=== PATIENT | female | born 1980 | race Caucasian/White ===

== ENCOUNTER 2022-09-22 12:26 | Emergency (ER) | payer BC, SELFPAY ==
[2022-09-22] VITALS (11 sets, daily range): BP systolic 107–121; BP diastolic 52–72; PULSE 61–80; RESP 13–22; TEMP 37.2; O2SAT 98–100; BMI 20.1
--- NOTE | 2022-09-22 13:45 | CT_ITS ---
[address] [address] Patient Name: MIGUELITO ADLAL MRN: [id number] date: 1980 Sex: F Assigned Patient Location: ER Current Patient Location: ED.[facility] Accession/Order Number: [id number] Exam Date: 09/22/2022 15:15 Report Date: 09/22/2022 20:03 At the request of: ANKUR DE LA CRUZ Procedure: CT abdomen pelvis w con EXAMINATION: CT abdomen pelvis w con HISTORY: left upper and mid quadrant abdominal pain COMPARISON: No relevant comparison available. TECHNIQUE: Axial, Coronal, and Sagittal images were obtained without and/or with IV contrast as indicated by examination type. Dose reduction techniques were achieved by using automated exposure control and/or adjustment of mA and/or kV according to patient size and/or use of iterative reconstruction technique. FINDINGS: LUNG BASES: No visible pulmonary or pleural disease. LIVER: No enlargement, atrophy, suspicious density, or significant focal lesion. BILIARY: No dilatation or calcification. PANCREAS: No lesion, fluid collection, or abnormal duct dilatation. SPLEEN: No enlargement or focal lesion. ADRENALS: No mass or enlargement. KIDNEYS: No mass, obstruction, or calcification. BOWEL/MESENTERY: Numerous fluid-filled loops of small bowel within the lower abdomen and pelvis. No visible mass, obstruction, or bowel wall thickening. No free air or free fluid. AORTA/VASCULAR: No aneurysm or dissection. RETROPERITONEUM: No mass or adenopathy. LYMPH NODES: No adenopathy. URINARY BLADDER: No visible focal wall thickening, lesion, or calculus. PELVIC ORGANS: Hysterectomy. ABDOMINAL WALL: No mass or hernia. BONES: No bony lesion or fracture. OTHER: Negative. CT/CT abdomen pelvis w con IMPRESSION: 1. Numerous fluid-filled loops of small bowel without obstruction; enteritis versus mild ileus? 2.No additional suspicious findings to account for patient's symptoms. Preliminary findings were provided to the emergency department at time of imaging. Electronically authenticated by: OPAL HUMPHERY Date: 09/22/2022 20:03
--- NOTE | 2022-09-22 13:45 | XR_ITS ---
The [address] [address] Patient Name: MIGUELITO DALAL MRN: [id number] date: 1980 Sex: F Assigned Patient Location: ER Current Patient Location: ED.[facility] Accession/Order Number: [id number] Exam Date: 09/22/2022 15:15 Report Date: 09/22/2022 20:00 At the request of: ANKUR DE LA CRUZ Procedure: XR chest 1V EXAMINATION: XR chest 1V HISTORY: epigastric abdominal pain COMPARISON: No relevant comparison available. FINDINGS: LUNGS: No significant pulmonary parenchymal abnormalities. VASCULATURE: No increased pulmonary vasculature. PLEURA: No pneumothorax, effusion, or pleural thickening. CARDIAC: No cardiomegaly or cardiac silhouette abnormality. MEDIASTINUM: No visible mass or adenopathy. BONES: No fracture or visible bone lesion. OTHER: Negative. XR/XR chest 1V IMPRESSION: 1. No acute cardiopulmonary process. Preliminary findings were provided to the emergency department at time of imaging. Electronically authenticated by: OPAL HUMPHREY Date: 09/22/2022 20:00
--- NOTE | 2022-09-22 13:45 | CT_ITS ---
The [address] [address] Patient Name: MIGUELITO DALAL MRN: [id number] date: 1980 Sex: F Assigned Patient Location: ER Current Patient Location: ED.MAIN Accession/Order Number: [id number] Exam Date: 09/22/2022 15:15 Report Date: 09/22/2022 20:01 At the request of: ANKUR DE LA CRUZ Procedure: CT head/brain wo con EXAMINATION: CT head/brain wo con HISTORY: headache dizziness COMPARISON: No relevant comparison available. TECHNIQUE: Axial CT images were obtained without IV contrast. Dose reduction techniques were achieved by using automated exposure control and/or adjustment of mA and/or kV according to patient size and/or use of iterative reconstruction technique. FINDINGS: BRAIN: No edema, hemorrhage, mass, acute infarction, or inappropriate atrophy. CSF SPACES: No hydrocephalus, subarachnoid hemorrhage, or mass. Appropriate for age. SKULL: No fracture, mass, or other significant visible lesion. SINUSES: No significant mucosal thickening or fluid on the limited views. ORBITS: No appreciable abnormality on the limited views. OTHER: Negative CT/CT head/brain wo con IMPRESSION: 1. Normal CT appearance of the brain. Preliminary findings were provided to the emergency department at time of imaging. Electronically authenticated by: OPAL HUMPHREY Date: 09/22/2022 20:01
[2022-09-22 13:57] LABS: Basophils Percent Auto 0.2 % (0.2-2.0); Eosinophils Percent Auto 0.4 % (0.9-7.0); Hematocrit 41.4 % (36.0-48.0); Hemoglobin 14.4 g/dL (12.0-16.0); Immature Granulocytes Abs Auto 0.02 10^3/uL (0.00-0.03); Immature Granulocytes Pct Auto 0.2 % (0.0-0.5); Lymphocytes Absolute Auto 1.1 10^3/uL (1.2-3.8); Lymphocytes Percent Auto 13.6 % (20.5-60.0); Mean Corpuscular HGB Conc 34.8 g/dL (29.9-35.2); Mean Corpuscular Hemoglobin 30.9 pg (26.7-34.0); Mean Corpuscular Volume 88.8 fL (81.0-99.0); Mean Platelet Volume 9.5 fL (9.5-13.5); Monocytes Absolute Auto 1.1 10^3/uL (0.3-0.8); Monocytes Percent Auto 14.2 % (1.7-12.0); Neutrophils Absolute Auto 5.7 10^3/uL (1.4-6.5); Neutrophils Percent Auto 71.4 % (43.0-75.0); Platelet Count 224 10^3/uL (150-450); Red Blood Count 4.66 10^6/uL (4.20-5.40); Red Cell Distribution Width 12.2 % (11.0-15.0)
--- NOTE | 2022-09-22 13:59 | ED_ITS ---
Documented by User: MONA Marquez 09/22/22 16:29 HPI - General Adult General Chief complaint: Nausea/Vomiting/Diarrhea Stated complaint: dehydration Time Seen by Provider: 09/22/22 13:37 Source: patient Mode of arrival: walk-in Limitations: no limitations History of Present Illness HPI narrative: patient is a 41-year-old female presents to the Emergency Room with concerns of headache, nausea, vomiting and diarrhea. Patient also states she has developed progressive abdominal pain. Patient notes symptoms started on Sunday while at work, feeling lightheaded and dizzy described as room spinning. No change with head position or movement. Symptoms progressed to nausea and vomiting and diarrhea started approximately 2-3 days ago, multiple bouts of watery with no blood or mucus. Patient states she's had progressive pain left upper quadrant sometimes diffuse currently 10/10. Headache is also present moderate-diffuse., no loss of visionit. Patient notes headache was gradual in onset. She denies any measurable fever but was noted to be ninety-nine degrees Fahrenheit on arrival. She is not on any current medication is had prior hysterectomy was recommended to come to the Emergency Room for evaluation of dehydration. Patient has noticed decreased urine output over the past few days despite trying to drink fluids. Patient denies any recent foreign travel denies any known ill contacts. States she ate hotdog at work, but no one else got sick and has not eaten any different foods. Related Data Previous Rx's Medication Instructions Recorded dicyclomine 20 mg tablet 20 mg PO TID abdominal pain 3 days 09/22/22 #9 tabs ondansetron HCl 4 mg tablet 4 mg PO Q6H PRN nausea and 09/22/22 vomiting #12 tabs Allergies Allergy/AdvReac Type Severity Reaction Status Date / Time No Known Drug Allergies Allergy Verified 09/22/22 12:35 Review of Systems ROS Constitutional Reports: fatigue; Denies: fever or chills Eyes Denies: change in vision Ears, nose, mouth, and throat Denies: throat pain, neck pain, throat swelling or difficulty swallowing Cardiovascular Denies: chest pain Respiratory Denies: shortness of breath Gastrointestinal Reports: abdominal pain, nausea, vomiting and diarrhea Genitourinary Reports: decreased urine ouput; Denies: painful urination, urinary frequency or urinary urgency Musculoskeletal Denies: back pain, neck pain or extremity pain Integumentary/Breast Denies: rash Neurological Reports: headache; Denies: numbness in extremities Psychiatric Denies: anxiety Allergic/Immunologic Denies: hives PFSH PFSH Social History Smoking status: Heavy tobacco smoker Exam Narrative Exam Narrative: Nurses notes and vital signs reviewed and patient is not hypoxic. General: The patient appears well , able to ambulate but dehydrated. Skin: Warm, dry, no pallor, loss of turgor, slight scale noted Head: Normocephalic, atraumatic Neck: Supple, trachea mid-line, no tenderness, no lymphadenopathy Eye: Pupils are equal, round and reactive to light, EOMI, denies diplopia, no visible nystagmus with position change or movement. Ears, Nose, Mouth, and Throat: TM are clear, normal light reflex, oral mucosa is moist, no posterior oropharynx erythema or hypertrophy, uvula is mid-line Cardiovascular: Regular Rate and Rhythm Respiratory: Patient is in no distress, no accessory muscle use, lungs are clear to auscultation, no wheezing, rales or rhonchi. Chest Wall: no tenderness Back: non-tender, no CVA tenderness Musculoskeletal: normal ROM, no tenderness, no swelling GI: bowel sounds present, notable tenderness in the left upper quadrant with guarding, no significant rebound rigidity. Neurological: A&O x4, negative Lan[place]-Hallpike maneuver Psychiatric: Cooperative Constitutional Vital Signs, click to edit/add: Last Vital Signs Temp 99 F 09/22/22 12:32 Pulse 72 09/22/22 16:30 Resp 16 09/22/22 16:30 BP 107/71 09/22/22 17:00 Pulse Ox 99 09/22/22 16:30 O2 Del Method Room Air 09/22/22 12:32 Course Vital Signs Vital signs: Vital Signs Temperature 99 F 09/22/22 12:32 Pulse Rate 80 09/22/22 12:32 Respiratory Rate 20 09/22/22 12:32 Blood Pressure 107/52 L 09/22/22 12:32 Pulse Oximetry 98 09/22/22 12:32 Oxygen Delivery Method Room Air 09/22/22 12:32 Temperature 99 F 09/22/22 12:32 Pulse Rate 72 09/22/22 16:30 Respiratory Rate 16 09/22/22 16:30 Blood Pressure 107/71 09/22/22 17:00 Pulse Oximetry 99 09/22/22 16:30 Oxygen Delivery Method Room Air 09/22/22 12:32 Medical Decision Making MDM Narrative Medical decision making narrative: patient presents with progressive symptoms from dizziness nausea and vomiting to diarrhea and abdominal pain. Worsening over the past five days, referred to Emergency Room by PCP for concerns of dehydration. We discussed her headache since Sunday which is atypical for her, moderate with room spinning sensation a CT of the head will be performed. Negative Lan[place]-Hallpike maneuver, patient has brisk finger to nose and balance appears intact. We discussed IV fluids for dehydration and recommend a CT of the abdomen and pelvis following her head CT for evaluation of her abdominal pain given the severity of pain and prominence of diarrhea. She denies any known history of Crohn's or colitis or diverticulitis. States she did have gastrointestinal symptoms several years ago that resolved without incident. Patient denies any exposures to small animals for concern of cross contamination or Salmonella. patient's initial IV in the right before meals infiltrated shortly after administration of Zofran and working her up to the IV pump. Additional 22-gauge IV was started in the left before meals and another 20-gauge was placed in the right dorsal wrist. Both flowing well with saline flush and administration of IV fluid bolus. Patient declined the need for additional nausea medication at this time. patient reevaluated, appears improved, discussed likely enteritis possible early ileus, patient will follow a clear liquid diet, recommend by mouth fluids, Zofran and Bentyl at home. She will follow-up with her family doctor on Sunday if possible for reevaluation and we discussed that if she develops any worsening symptoms such as increased pain, persistent vomiting she is to return [facility] the [facility] for reevaluation. Patient verbalized understanding. Questions answered in layman's terms. Lab Data Labs: Lab Results 09/22/22 09/22/22 Range/Units 13:44 16:04 WBC 8.0 (4.0-11.0) 10^3/uL RBC 4.66 (4.20-5.40) 10^6/uL Hgb 14.4 (12.0-16.0) g/dL Hct 41.4 (36.0-48.0) % MCV 88.8 (81.0-99.0) fL MCH 30.9 (26.7-34.0) pg MCHC 34.8 (29.9-35.2) g/dL RDW 12.2 (11.0-15.0) % Plt Count 224 (150-450) 10^3/uL MPV 9.5 (9.5-13.5) fL Neut % (Auto) 71.4 (43.0-75.0) % Lymph % (Auto) 13.6 L (20.5-60.0) % Treasure % (Auto) 14.2 H (1.7-12.0) % Eos % (Auto) 0.4 L (0.9-7.0) % Baso % (Auto) 0.2 (0.2-2.0) % Neut # (Auto) 5.7 (1.4-6.5) 10^3/uL Lymph # (Auto) 1.1 L (1.2-3.8) 10^3/uL [place] # (Auto) 1.1 H (0.3-0.8) 10^3/uL Eos # (Auto) 0.0 (0.0-0.7) 10^3/uL Baso # (Auto) 0.0 (0.0-0.1) 10^3/uL Abs Immat Gran (auto) 0.02 (0.00-0.03) 10^3/uL Imm/Tot Granulo (auto) 0.2 (0.0-0.5) % Sodium 137 (136-145) mmol/L Potassium 4.2 (3.5-5.1) mmol/L Chloride 105 (98-107) mmol/L Carbon Dioxide 23.2 (21.0-32.0) mmol/L Anion Gap 13.0 BUN 9.0 (7.0-18.0) mg/dL Creatinine 0.66 (0.55-1.02) mg/dL Est GFR ( Amer) >60 (>=60) Est GFR (Non-Af Amer) >60 (>=60) BUN/Creatinine Ratio 13.6 Glucose 98 (74-106) mg/dL Lactate 0.4 (0.4-2.0) mmol/L Calcium 9.1 (8.5-10.1) mg/dL Total Bilirubin 0.4 (0.2-1.0) mg/dL AST 17 (15-37) U/L ALT 16 (14-59) U/L Alkaline Phosphatase 66 (46-116) U/L Troponin I High Sens <4.0 L (4.0-51.3) pg/mL Total Protein 8.1 (6.4-8.2) g/dL Albumin 4.2 (3.4-5.0) g/dL Globulin 3.9 g/dL Albumin/Globulin Ratio 1.1 Lipase 86.0 (73.0-393.0) U/L Urine Color Yellow (YELLOW) Urine Clarity Clear (CLEAR) Urine pH 5.5 (5.0-9.0) Ur Specific [place] 1.010 (1.005-1.025) Urine Protein Negative (NEG/TRACE) mg/dL Urine Glucose (UA) Negative (NEGATIVE) mg/dL Urine Ketones Negative (NEGATIVE) mg/dL Urine Occult Blood Moderate A (NEGATIVE) Urine Nitrite Negative (NEGATIVE) Urine Bilirubin Negative (NEGATIVE) Urine Urobilinogen 0.2 (0.2-1.0) EU/dL Ur Leukocyte Esterase Negative (NEGATIVE) PROCEDURE: XR CHEST 1V COMPARISON: None. INDICATIONS: epigastric abdominal pain FINDINGS: Lungs are clear. No abnormal mediastinal widening or cardiac enlargement. No pneumothorax or pleural effusion. No acute bone abnormality. CONCLUSION: 1. No acute cardiopulmonary process. Dictated by: Dario Trinidad M.D. on 09/22/2022 at 15:39 Approved by: Dario Trinidad M.D. on 09/22/2022 at 15:40 PROCEDURE: CT HEAD/BRAIN WO CON COMPARISON: None. INDICATIONS: headache dizziness FINDINGS: No intracranial hemorrhage, midline shift, or mass effect. CSF spaces are normally maintained. Normal gupta-white differentiation. Paranasal sinuses are clear. No fracture of the calvarium or scalp hematoma. CONCLUSION: 1. Normal CT appearance of the brain. Dictated by: Dario Trinidad M.D. on 09/22/2022 at 15:40 Approved by: Dario Trinidad M.D. on 09/22/2022 at 15:45 RADIOLOGY REPORT PROCEDURE: CT ABDOMEN PELVIS W CON COMPARISON: None. INDICATIONS: left upper and mid quadrant abdominal pain TECHNIQUE: CT images were created with IV contrast. Axial, Coronal, and Sagittal images. DOSE: 836 mGycm FINDINGS: LUNG BASES: No visible pulmonary or pleural disease. LIVER: No enlargement, atrophy, abnormal density, or significant focal lesion. BILIARY: No visible dilatation or calcification. PANCREAS: No lesion, fluid collection, ductal dilatation, or atrophy. SPLEEN: No enlargement or focal lesion. ADRENALS: No mass or enlargement. KIDNEYS: No mass, obstruction, or calcification. BOWEL/MESENTERY: Numerous fluid-filled loops of small bowel within the lower abdomen and pelvis without obstruction or significant wall thickening. Unremarkable colon. No free air, free fluid, or lymphadenopathy. AORTA/VASCULAR: No aneurysm or dissection. RETROPERITONEUM: No mass or adenopathy. LYMPH NODES: No adenopathy. URINARY BLADDER: No visible focal wall thickening, lesion, or calculus. PELVIC ORGANS: Hysterectomy. ABDOMINAL WALL: No mass or hernia. BONES: No bony lesion or fracture. OTHER: Negative. CONCLUSION: 1. Numerous fluid-filled loops of small bowel without obstruction; enteritis versus mild ileus? 2. No additional suspicious findings to account for patient's symptoms. Dictated by: Dario Trinidad M.D. on 09/22/2022 at 15:45 Approved by: Dario Trinidad M.D. on 09/22/2022 at 15:52 ECG Data Attestation: I personally reviewed and interpreted this ECG as follows: (EKG interpretation: Emergency Department physician interpretation, normal sinus rhythm 60 bpm, no ectopy, no ST segment elevation, normal axis.) Discharge Plan Discharge Chief Complaint: Nausea/Vomiting/Diarrhea Clinical Impression: Diarrhea, Nausea & vomiting, Abdominal pain Patient Disposition: Home, Self-Care Time of Disposition Decision: 16:28 Condition: Good Prescriptions / Home Meds: New ondansetron HCl 4 mg tablet 4 mg PO Q6H PRN (Reason: nausea and vomiting) Qty: 12 0RF dicyclomine 20 mg tablet 20 mg PO TID 3 Days Qty: 9 0RF Instructions: Clear Liquid Diet (ED), Abdominal Pain (ED) Stand Alone Forms: Portal Instructions Referrals: MARIBELL MOFFETT [Primary Care Provider] - As soon as possible (Sunday for recheck) Discharge Date/Time: 09/22/22 17:34 Documented by User: Cassidy Cordova MD 09/22/22 19:26 HPI - General Adult General Chief complaint: Nausea/Vomiting/Diarrhea Stated complaint: dehydration Time Seen by Provider: 09/22/22 13:37 Related Data Previous Rx's Medication Instructions Recorded dicyclomine 20 mg tablet 20 mg PO TID abdominal pain 3 days 09/22/22 #9 tabs ondansetron HCl 4 mg tablet 4 mg PO Q6H PRN nausea and 09/22/22 vomiting #12 tabs Allergies Allergy/AdvReac Type Severity Reaction Status Date / Time No Known Drug Allergies Allergy Verified 09/22/22 12:35 PFSH PFSH Social History Smoking status: Heavy tobacco smoker Exam Constitutional Vital Signs, click to edit/add: Last Vital Signs Temp 99 F 09/22/22 12:32 Pulse 72 09/22/22 16:30 Resp 16 09/22/22 16:30 BP 107/71 09/22/22 17:00 Pulse Ox 99 09/22/22 16:30 O2 Del Method Room Air 09/22/22 12:32 Course Vital Signs Vital signs: Vital Signs Temperature 99 F 09/22/22 12:32 Pulse Rate 80 09/22/22 12:32 Respiratory Rate 20 09/22/22 12:32 Blood Pressure 107/52 L 09/22/22 12:32 Pulse Oximetry 98 09/22/22 12:32 Oxygen Delivery Method Room Air 09/22/22 12:32 Temperature 99 F 09/22/22 12:32 Pulse Rate 72 09/22/22 16:30 Respiratory Rate 16 09/22/22 16:30 Blood Pressure 107/71 09/22/22 17:00 Pulse Oximetry 99 09/22/22 16:30 Oxygen Delivery Method Room Air 09/22/22 12:32 Medical Decision Making [facility] Narrative Medical decision making narrative: patient presents with progressive symptoms from dizziness nausea and vomiting to diarrhea and abdominal pain. Worsening over the past five days, referred to Emergency Room by PCP for concerns of dehydration. We discussed her headache since Sunday which is atypical for her, moderate with room spinning sensation a CT of the head will be performed. Negative Higinio-Hallpike maneuver, patient has brisk finger to nose and balance appears intact. We discussed IV fluids for dehydration and recommend a CT of the abdomen and pelvis following her head CT for evaluation of her abdominal pain given the severity of pain and prominence of diarrhea. She denies any known history of Crohn's or colitis or diverticulitis. States she did have gastrointestinal symptoms several years ago that resolved without incident. Patient denies any exposures to small animals for concern of cross contamination or Salmonella. patient's initial IV in the right before meals infiltrated shortly after administration of Zofran and working her up to the IV pump. Additional 22-gauge IV was started in the left before meals and another 20-gauge was placed in the right dorsal wrist. Both flowing well with saline flush and administration of IV fluid bolus. Patient declined the need for additional nausea medication at this time. patient reevaluated, appears improved, discussed likely enteritis possible early ileus, patient will follow a clear liquid diet, recommend by mouth fluids, Zofran and Bentyl at home. She will follow-up with her family doctor on Sunday if possible for reevaluation and we discussed that if she develops any worsening symptoms such as increased pain, persistent vomiting she [facility]. Patient verbalized understanding. Questions answered in layman's terms. Attending physician attestation I have seen and evaluated this patient. I have reviewed the mid-level provider?s documentation medical decision making and treatment plan. I agree with the mid- level provider?s assessment, and plan. Lab Data Labs: Lab Results 09/22/22 09/22/22 Range/Units 13:44 16:04 WBC 8.0 (4.0-11.0) 10^3/uL RBC 4.66 (4.20-5.40) 10^6/uL Hgb 14.4 (12.0-16.0) g/dL Hct 41.4 (36.0-48.0) % MCV 88.8 (81.0-99.0) fL MCH 30.9 (26.7-34.0) pg MCHC 34.8 (29.9-35.2) g/dL RDW 12.2 (11.0-15.0) % Plt Count 224 (150-450) 10^3/uL MPV 9.5 (9.5-13.5) fL Neut % (Auto) 71.4 (43.0-75.0) % Lymph % (Auto) 13.6 L (20.5-60.0) % Treasure % (Auto) 14.2 H (1.7-12.0) % Eos % (Auto) 0.4 L (0.9-7.0) % Baso % (Auto) 0.2 (0.2-2.0) % Neut # (Auto) 5.7 (1.4-6.5) 10^3/uL Lymph # (Auto) 1.1 L (1.2-3.8) 10^3/uL [place] # (Auto) 1.1 H (0.3-0.8) 10^3/uL Eos # (Auto) 0.0 (0.0-0.7) 10^3/uL Baso # (Auto) 0.0 (0.0-0.1) 10^3/uL Abs Immat Gran (auto) 0.02 (0.00-0.03) 10^3/uL Imm/Tot Granulo (auto) 0.2 (0.0-0.5) % Sodium 137 (136-145) mmol/L Potassium 4.2 (3.5-5.1) mmol/L Chloride 105 (98-107) mmol/L Carbon Dioxide 23.2 (21.0-32.0) mmol/L Anion Gap 13.0 BUN 9.0 (7.0-18.0) mg/dL Creatinine 0.66 (0.55-1.02) mg/dL Est GFR ( Amer) >60 (>=60) Est GFR (Non-Af Amer) >60 (>=60) BUN/Creatinine Ratio 13.6 Glucose 98 (74-106) mg/dL Lactate 0.4 (0.4-2.0) mmol/L Calcium 9.1 (8.5-10.1) mg/dL Total Bilirubin 0.4 (0.2-1.0) mg/dL AST 17 (15-37) U/L ALT 16 (14-59) U/L Alkaline Phosphatase 66 (46-116) U/L Troponin I High Sens <4.0 L (4.0-51.3) pg/mL Total Protein 8.1 (6.4-8.2) g/dL Albumin 4.2 (3.4-5.0) g/dL Globulin 3.9 g/dL Albumin/Globulin Ratio 1.1 Lipase 86.0 (73.0-393.0) U/L Urine Color Yellow (YELLOW) Urine Clarity Clear (CLEAR) Urine pH 5.5 (5.0-9.0) Ur Specific [place] 1.010 (1.005-1.025) Urine Protein Negative (NEG/TRACE) mg/dL Urine Glucose (UA) Negative (NEGATIVE) mg/dL Urine Ketones Negative (NEGATIVE) mg/dL Urine Occult Blood Moderate A (NEGATIVE) Urine Nitrite Negative (NEGATIVE) Urine Bilirubin Negative (NEGATIVE) Urine Urobilinogen 0.2 (0.2-1.0) EU/dL Ur Leukocyte Esterase Negative (NEGATIVE) Discharge Plan Discharge Chief Complaint: Nausea/Vomiting/Diarrhea Clinical Impression: Diarrhea, Nausea & vomiting, Abdominal pain Patient Disposition: Home, Self-Care Time of Disposition Decision: 16:28 Condition: Good Prescriptions / Home Meds: New ondansetron HCl 4 mg tablet 4 mg PO Q6H PRN (Reason: nausea and vomiting) Qty: 12 0RF dicyclomine 20 mg tablet 20 mg PO TID 3 Days Qty: 9 0RF Instructions: Clear Liquid Diet (ED), Abdominal Pain (ED) Stand Alone Forms: Portal Instructions Referrals: MARIBELL MOFFETT [Primary Care Provider] - As soon as possible (Sunday for recheck) Discharge Date/Time: 09/22/22 17:34
[2022-09-22] MEDS: 0.9 % SODIUM CHLORIDE 1,000 ML 999 ML IV ×2 (14:04→16:49)
[2022-09-22] MEDS: HYOSCYAMINE SULFATE 0.125 MG TAB.SUBL SL (14:04)
[2022-09-22] MEDS: HYDROMORPHONE HCL 1 MG/ML CARTRIDGE 0.5 MG IVP (14:04)
[2022-09-22] MEDS: ONDANSETRON PF 4 MG/2 ML VIAL IV (14:04)
[2022-09-22] MEDS: DIAZEPAM 5 MG/ML - 2 ML INJ SYRINGE 2.5 MG IV (14:05)
--- NOTE | 2022-09-22 14:07 | ECG_ITS ---
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
[2022-09-22 14:13] LABS: Lactate/Lactic Acid 0.4 mmol/L (0.4-2.0)
[2022-09-22 14:14] LABS: Alanine Aminotransferase 16 U/L (14-59); Albumin Globulin Ratio 1.1; Albumin Level 4.2 g/dL (3.4-5.0); Alkaline Phosphatase 66 U/L (46-116); Aspartate Amino Transferase 17 U/L (15-37); BUN Creatinine Ratio 13.6; Bilirubin Total 0.4 mg/dL (0.2-1.0); Calcium 9.1 mg/dL (8.5-10.1); Carbon Dioxide 23.2 mmol/L (21.0-32.0); Chloride 105 mmol/L (98-107); Estimated GFR (African America >60 (>=60); Estimated GFR (Non-African Ame >60 (>=60); Globulin 3.9 g/dL; Glucose 98 mg/dL (74-106); Potassium 4.2 mmol/L (3.5-5.1); Sodium 137 mmol/L (136-145); Total Protein 8.1 g/dL (6.4-8.2); Troponin I High Sensitivity <4.0 pg/mL (4.0-51.3)
[2022-09-22 16:22] LABS: Bilirubin Urine NEGATIVE (NEGATIVE); Blood Urine MODERATE (NEGATIVE); Clarity Urine CLEAR (CLEAR); Color Urine YELLOW (YELLOW); Glucose Urine UA NEGATIVE (NEGATIVE); Ketones Urine NEGATIVE (NEGATIVE); Leukocyte Esterase Urine NEGATIVE (NEGATIVE); Nitrite Urine NEGATIVE (NEGATIVE); Protein Urine NEGATIVE (NEG/TRACE); Urobilinogen Urine 0.2 EU/dL (0.2-1.0); pH Urine 5.5 (5.0-9.0)
[2022-09-22 16:23] LABS: Urine Microscopic Indicated NO
== END 2022-09-22 17:34 | disposition home or self-care (01) ==
PROVIDERS: Personal Emergency Response Attendant; Emergency Provider Emergency Medicine; PCP Internal Medicine
DX: R11.2 Nausea with vomiting, unspecified (principal); R19.7 Diarrhea, unspecified; R10.9 Unspecified abdominal pain; F17.210 Nicotine dependence, cigarettes, uncomplicated
CPT/HCPCS: 36415; 70450; 71045; 74177; 80053; 81003; 83605; 83690; 84484; 85025; 93005; 96361; 96374; 96375; 99285; J1170; Q9967